=== PATIENT | male | born 1955 | race African-American/Black ===

== ENCOUNTER 2019-02-21 18:07 | Emergency (ER) | payer SELFPAY ==
[~2019-02-21] VITALS: Ht 188 cm; Wt 97.0 kg
[2019-02-21] MEDS ORDERED: LORAZEPAM 2MG/ML CPJ IM ONE (19:15)
[2019-02-21 19:25] VITALS: BP 113/75
== END 2019-02-21 20:45 | disposition home or self-care (01) ==
LOC: ER 18:07
DX: F10.129 Alcohol abuse with intoxication, unspecified (principal); Y90.9 Presence of alcohol in blood, level not specified; E11.9 Type 2 diabetes mellitus without complications
CPT/HCPCS: 96372; 99283; J2060